=== PATIENT | male | born 1955 | race African-American/Black ===

== ENCOUNTER 2018-03-22 10:46 | Emergency (ER) | payer OTHER ==
--- NOTE | 2018-03-22 10:53 | PDOC ---
History of Present Illness - General Chief Complaint: Injury Stated Complaint: slipped at work, left ankle pain Time Seen by Provider: 03/22/18 10:48 History Source: Patient (Patient walked in complaining of injury to left jessica when he slipped off a chair while at work) Exam Limitations: No Limitations - History of Present Illness Timing/Duration: 1 hour Severity: mild Modifying Factors: improves with: rest Associated Symptoms: reports: denies symptoms Past History - Travel Traveled outside of the country in the last 30 days: No Close contact w/someone who was outside of country & ill: No - Past Medical History Allergies/Adverse Reactions: Allergies Allergy/AdvReac Type Severity Reaction Status Date / Time No Known Allergies Allergy Verified 03/22/18 10:48 Home Medications: Ambulatory Orders NK [No Known Home Medication] 03/22/18 Other medical history: Denies any significant PMH - Surgical History Other Surgical History: No surgical history 03/22/18 14:04 Review of Systems - Review of Systems Able to Perform ROS?: Yes Is the patient limited Uzbek proficient: Yes Constitutional: No: Symptoms Reported, See HPI, Chills, Diaphoresis, Fever, Loss of Appetite, Malaise, Night Sweats, Weakness, Weight Stable, Unintentional Wgt. Loss, Unexplained wgt Loss, Other HEENTM: No: Symptoms Reported, See HPI, Eye Pain, Blurred Vision, Tearing, Recent change in vision, Double Vision, Cataracts, Ear Pain, Ocular Prothesis, Ear Discharge, Nose Pain, Nose Congestion, Tinnitus, Nose Bleeding, Hearing Loss , Throat Pain, Throat Swelling, Mouth Pain, Dental Problems, Difficulty Swallowing, Mouth Swelling, Other Respiratory: No: Symptoms reported, See HPI, Cough, Orthopnea, Shortness of Breath, SOB with Exertion, SOB at Rest, Stridor, Wheezing, Productive cough, Hemoptysis, Other Cardiac (ROS): No: Symptoms Reported Musculoskeletal: Yes: Symptoms Reported, See HPI, Joint Pain, Joint Swelling Integumentary: No: Symptoms Reported Neurological: No: Symptoms reported Endocrine: No: Symptoms Reported Hematologic/Lymphatic: No: Symptoms Reported All Other Systems: Reviewed and Negative *Physical Exam - Physical Exam General Appearance: Yes: Nourished, Appropriately Dressed, Mild Distress HEENT: positive: NIDIA Neck: positive: Supple Musculoskeletal: positive: Normal Inspection Extremity: positive: Normal Capillary Refill, Other (Mildto moderate tenderness over the lateral jen maleola area, normal Achile's tendon) 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, Fully Oriented, Alert, Normal Mood/ Affect Medical Decision Making - Medical Decision Making Ankle Velcro splint applied with increased comfort 03/22/18 14:20 *DC/Admit/Observation/Transfer Diagnosis at time of Disposition: Moderate ankle sprain Qualifiers: Encounter type: initial encounter Laterality: left Qualified Code(s): S93.402A - Sprain of unspecified ligament of left ankle, initial encounter - Discharge Dispostion Disposition: HOME Condition at time of disposition: Improved Decision to Admit order: No - Referrals Referrals: Laurent Graham MD [Staff Physician] - - Patient Instructions Additional Instructions: Elevation, ice on and off 30 minutes apart Advil x3 /day - Post Discharge Activity Forms/Work/School Notes: Back to Work
[2018-03-22 10:55] VITALS: BP 123/90; PULSE 75; TEMP 99.1; BMI 26.5
[2018-03-22] MEDS ORDERED: ACETAMINOPHEN 500 MG TABLET (FP) PO ONE (10:57)
[2018-03-22] MEDS ORDERED: ACETAMINOPHEN 500 MG TABLET (FP) ONE (11:10)
== END 2018-03-22 12:09 | disposition home or self-care (01) ==
LOC: FER 10:46
DX: S93.402A Sprain of unspecified ligament of left ankle, initial encounter (principal); X58.XXXA Exposure to other specified factors, initial encounter; Y93.9 Activity, unspecified; Y92.89 Other specified places as the place of occurrence of the external cause
CPT/HCPCS: 73610-TC-LT-FY; 99282-25